=== PATIENT | female | born 1940 | race Caucasian/White ===

== ENCOUNTER 2017-10-31 21:33 | Emergency (ER) | payer MEDICARE ==
[~2017-10-31] VITALS: Ht 170.2 cm; Wt 57.0 kg
[~2017-10-31 21:33] MED LIST: AMLO5TAB4 PO; THY15T PO
[2017-10-31 23:07] VITALS: BP 182/80
[2017-10-31] MEDS ORDERED: hyDRALAzine 10mg tablet PO SCH (23:20)
== END 2017-10-31 23:31 | disposition home or self-care (01) ==
LOC: ER 21:34
DX: I10 Essential (primary) hypertension (principal); G89.29 Other chronic pain; F12.90 Cannabis use, unspecified, uncomplicated; Z98.890 Other specified postprocedural states; Z79.899 Other long term (current) drug therapy
CPT/HCPCS: 99282

== ENCOUNTER 2017-11-10 08:37 | Outpatient (CLI) | payer MEDICARE ==
[2017-11-10 09:56] LABS: CLARITY,URINE CLEAR (Clear); COLOR,URINE STRAW (Yellow); GLUCOSE, URINE NEGATIVE (Neg); KETONES,URINE NEGATIVE (Neg); LEUKOCYTE ESTERASE ,URINE NEGATIVE (Neg); NITRITES, URINE NEGATIVE (Neg); OCCULT BLOOD,URINE NEGATIVE (Neg); PH,URINE 5.5 (4.8-8.0); PROTEIN,URINE NEGATIVE (Neg); UROBILINOGEN,URINE 0.2 E.U/dL (0.2-1.0)
[2017-11-10 10:04] LABS: PROTHROMBIN TIME 9.9 SECONDS (9.0-12.0)
[2017-11-10 10:04] LABS: UA COLLECTION TYPE CLN CATCH MIDSTREAM
[2017-11-10 10:08] LABS: BASOPHILS # (AUTO) 0.1 X10'3 (0-0.2); BASOPHILS % (AUTO) 0.8 % (0-1); EOSINOPHILS # (AUTO) 1.1 X10'3 (0-0.9); EOSINOPHILS % (AUTO) 11.8 % (0-6); HEMATOCRIT 50.4 % (35.0-45.0); HEMOGLOBIN 16.5 g/dl (12.0-16.0); LYMPHOCYTES # (AUTO) 2.5 X10'3 (1.1-4.8); LYMPHOCYTES % (AUTO) 26.9 % (21-51); MEAN CORPUSCULAR HEMOGLOBIN 30.3 PG (27.0-31.0); MEAN CORPUSCULAR HGB CONC 32.8 % (33.0-36.5); MEAN CORPUSCULAR VOLUME 92.5 FL (78-98); MEAN PLATELET VOLUME 9.2 FL (7.4-10.4); MONOCYTES % (AUTO) 9.8 % (2-12); NEUTROPHILS # (AUTO) 4.5 X10'3 (1.8-7.7); NEUTROPHILS % (AUTO) 50.7 % (42-75); PLATELET COUNT 207 X10'3 (140-440); RED BLOOD COUNT 5.44 X10'6 (4.20-5.60); RED CELL DISTRIBUTION WIDTH 13.9 % (11.5-14.5); WHITE BLOOD COUNT 9.1 X10'3 (4.5-11.0)
[2017-11-10 10:09] LABS: MONOCYTES # (AUTO) 0.9 X10'3 (0-0.9)
[2017-11-10 10:21] LABS: ALANINE AMINOTRANSFERASE 25 U/L (12-78); ALBUMIN 4.2 G/DL (3.4-5.0); ALKALINE PHOSPHATASE 60 IU/L (46-116); ANION GAP 10 (8-16); ASPARTATE AMINO TRANSFERASE 28 U/L (10-37); BILIRUBIN,TOTAL 1.3 MG/DL (0.1-1.0); BLOOD UREA NITROGEN 10 MG/DL (7-18); BUN/CREATININE RATIO 12.8 (6.6-38.0); CALCIUM 10.5 MG/DL (8.5-10.1); CHLORIDE 100 MMOL/L (99-107); CREATININE 0.78 MG/DL (0.40-0.90); GLUCOSE 85 MG/DL (70-104); POTASSIUM 4.1 MMOL/L (3.5-5.1); SODIUM 137 MMOL/L (135-145); TOTAL CARBON DIOXIDE 26.6 MMOL/L (24-32); TOTAL PROTEIN 8.3 G/DL (6.4-8.2); eGFR 71 ML/MIN
== END 2017-11-10 23:59 | disposition home or self-care (01) ==
LOC: LAB 08:37
PROVIDERS: ATTEND Specialist
DX: Z01.818 Encounter for other preprocedural examination (principal); Z51.81 Encounter for therapeutic drug level monitoring; N39.0 Urinary tract infection, site not specified; E03.9 Hypothyroidism, unspecified; I10 Essential (primary) hypertension; J44.9 Chronic obstructive pulmonary disease, unspecified; Z87.891 Personal history of nicotine dependence
CPT/HCPCS: 36415; 80053; 81003; 84443; 85025; 85610; 87070

== ENCOUNTER 2017-11-10 08:50 | Outpatient (CLI) | payer MEDICARE ==
[2017-11-10 10:14] LABS: CHOL/HDL RATIO 2.8 (0.00-4.99); CHOLESTEROL 300 MG/DL (0-200); HDL CHOLESTEROL 109 MG/DL (35-60); LDL CHOLESTEROL 183 MG/DL (50-100); TRIGLYCERIDES 103 MG/DL (20-135)
== END 2017-11-10 23:59 | disposition home or self-care (01) ==
LOC: LAB 08:50
PROVIDERS: ATTEND Family Medicine
DX: Z13.220 Encounter for screening for lipoid disorders (principal); I10 Essential (primary) hypertension; J44.9 Chronic obstructive pulmonary disease, unspecified; Z87.891 Personal history of nicotine dependence
CPT/HCPCS: 36415; 80061

== ENCOUNTER 2017-11-24 05:42 | Inpatient (IN) | payer MEDICARE ==
[2017-11-24] VITALS (20 sets, daily range): BP systolic 86–143; BP diastolic 44–80
[~2017-11-24] VITALS: Ht 165.1 cm; Wt 57.4 kg
[~2017-11-24 05:42] MED LIST changes: -AMLO5TAB4 PO; +ASCO500T20 PO; +BLAC540C4 PO; +CHOL200026 PO; +CLON-529 PO; +LEVO75TA PO; +LIDOcaine 1% (10mg/ml) 2ml vial ONE; +LOSA50TA21 PO; +LUTE1CAP6 PO; +MAGN400C PO; +MELA5TAB14 PO; +MULT-1096 PO; +OMEG-86 PO; -THY15T PO; +VANCOMYCIN INJ 1000 MG in NORMAL SALINE 250ml IV.SOLN IV ONE; +[UNRECOGNIZED DRUG - OTHER] PO; +acetaminophen 325mg tablet PO ONE; +albuterol 2.5 MG/3 ML nebule NEB ONE; +cefazolin/dext.iso 2gm/100 ML IV ONE; +famotidine 20mg tablet PO ONE; +gabapentin 300mg capsule PO ONE; +ringers solution, lacted 1,000 ML IV SCH; +tranexamic acid inj. 1,500 MG in normal saline 100ml IV soln 85 ML IV ONE
[2017-11-24] MEDS ORDERED: ROPIVAcaine 0.5% (5mg/ml) 30ml vial ONE ×2 (06:44→08:07)
[2017-11-24] MEDS ORDERED: bacitracin inj 150,000 UNIT in sodium chloride irrig. sol 3,000 ML IR ONE (07:00)
[2017-11-24] MEDS ORDERED: tetracaine 1% (10mg/ml) pres. free inj. ONE (07:15)
[2017-11-24] MEDS ORDERED: ePHEDrine 50MG/ML INJ. ONE (07:16)
[2017-11-24] MEDS ORDERED: morphine /PF 1mg/ml 10ml inj. ONE (07:16)
[2017-11-24] MEDS ORDERED: MIDAZolam 5mg/5ml vial ONE (07:17)
[2017-11-24] MEDS ORDERED: fentaNYL/PF 50MCG/1 ML 2ML syringe ONE ×2 (07:17→08:54)
[2017-11-24] MEDS ORDERED: LIDOcaine 2% (20mg/ml) 5ml vial ONE (07:39)
[2017-11-24] MEDS ORDERED: propofol inj 20 ML IV ONE (07:40)
[2017-11-24] MEDS ORDERED: diphenhydrAMINE 50 mg/ml inj ONE (07:52)
[2017-11-24] MEDS ORDERED: cloNIDine hcl/PF 100mcg/ml inj ONE (08:06)
[2017-11-24] MEDS ORDERED: dexamethasone sod phosphate 4mg/ml inj. ONE (08:07)
[2017-11-24] MEDS ORDERED: ringers solution, lacted 1,000 ML IV SCH (08:27)
[2017-11-24] MEDS ORDERED: naloxone 2mg/2ml inj 1.2 MG in normal saline 500ml IV soln 500 ML IV PRN (08:27)
[2017-11-24] MEDS ORDERED: HYDROmorphone inj. 0.5 MG/0.5 ML DISP.SYRIN IV PRN (08:30)
[2017-11-24] MEDS ORDERED: morphine 4 MG/ML inj SYRINge IV PRN (08:30)
[2017-11-24] MEDS ORDERED: ondansetron/PF 4mg/2ml inj IV PRN ×3 (08:30→09:55)
[2017-11-24] MEDS ORDERED: diphenhydrAMINE 50 mg/ml inj IV PRN (08:30)
[2017-11-24] MEDS ORDERED: ceFAZolin 1000mg inj ONE (08:40)
[2017-11-24] MEDS ORDERED: diphenhydrAMINE 25mg capsule PO PRN ×2 (09:55)
[2017-11-24] MEDS ORDERED: HYDROmorphone 1 mg/ml syringe IV PRN (09:55)
[2017-11-24] MEDS ORDERED: bisacodyl 10mg suppository rectal RC PRN (09:55)
[2017-11-24] MEDS ORDERED: acetaminophen 325mg tablet PO PRN (09:55)
[2017-11-24] MEDS ORDERED: magnesium hydroxide 30ml (MOM) UD suspension PO PRN (09:55)
[2017-11-24] MEDS: gabapentin 300mg capsule PO SCH ×2 (13:09→20:45)
[2017-11-24] MEDS: oxyCODONE/APAP 5-325mg tablet PO PRN ×2 (13:11→17:18)
[2017-11-24] MEDS: potassium cl 20mEq in 1/2 NS 1,000 ML IV SCH ×2 (13:13→20:46)
[2017-11-24] MEDS: ceFAZolin 1GM/D5W- ADD-VANTAGE 50 ML IV SCH ×2 (15:57→23:50)
[2017-11-24] MEDS ORDERED: vancomycin/NS 1 GM ADD-VANTAGE 250 ML IV SCH (20:00)
[2017-11-24] MEDS: ascorbic acid 500mg tablet PO SCH (20:45)
[2017-11-24] MEDS: sennosides 8.6mg tablet PO SCH (20:45)
[2017-11-25] MEDS: potassium cl 20mEq in 1/2 NS 1,000 ML IV SCH ×3 (01:53→15:03)
[2017-11-25 02:00] VITALS: BP 121/67
[2017-11-25] MEDS: oxyCODONE/APAP 5-325mg tablet PO PRN ×4 (05:19→20:25)
[2017-11-25 05:47] LABS: BASOPHILS % (AUTO) 0.2 % (0-1); EOSINOPHILS % (AUTO) 0.4 % (0-6); HEMATOCRIT 34.9 % (35.0-45.0); HEMOGLOBIN 12.1 g/dl (12.0-16.0); LYMPHOCYTES # (AUTO) 1.1 X10'3 (1.1-4.8); LYMPHOCYTES % (AUTO) 10.1 % (21-51); MEAN CORPUSCULAR HEMOGLOBIN 31.7 PG (27.0-31.0); MEAN CORPUSCULAR HGB CONC 34.8 % (33.0-36.5); MEAN CORPUSCULAR VOLUME 91.3 FL (78-98); MEAN PLATELET VOLUME 9.4 FL (7.4-10.4); MONOCYTES # (AUTO) 0.7 X10'3 (0-0.9); MONOCYTES % (AUTO) 6.3 % (2-12); NEUTROPHILS # (AUTO) 9.2 X10'3 (1.8-7.7); PLATELET COUNT 188 X10'3 (140-440); RED BLOOD COUNT 3.82 X10'6 (4.20-5.60); RED CELL DISTRIBUTION WIDTH 13.9 % (11.5-14.5)
[2017-11-25 05:50] LABS: INR 1.3 INR; PROTHROMBIN TIME 13.3 SECONDS (9.0-12.0)
[2017-11-25 06:00] VITALS: BP 112/61
[2017-11-25 06:15] LABS: ANION GAP 8 (8-16); CHLORIDE 107 MMOL/L (99-107); POTASSIUM 4.6 MMOL/L (3.5-5.1); SODIUM 140 MMOL/L (135-145); TOTAL CARBON DIOXIDE 24.7 MMOL/L (24-32)
[2017-11-25] MEDS: ascorbic acid 500mg tablet PO SCH ×2 (08:16→20:24)
[2017-11-25] MEDS: levoTHYROXINE 75mcg tablet PO SCH (08:16)
[2017-11-25] MEDS: multivitamins, therapeutics tablet PO SCH (08:17)
[2017-11-25] MEDS: gabapentin 300mg capsule PO SCH ×3 (08:17→20:24)
[2017-11-25] MEDS: losartan 50mg tablet PO SCH (08:18)
[2017-11-25] MEDS: cloNIDine 0.1 mg tablet PO SCH (08:18)
[2017-11-25 10:00] VITALS: BP 116/58
[2017-11-25] MEDS ORDERED: warfarin 5mg tablet PO ONE (10:00)
[2017-11-25 14:00] VITALS: BP 133/51
[2017-11-25 18:00] VITALS: BP 147/55
[2017-11-25] MEDS: sennosides 8.6mg tablet PO SCH (20:24)
[2017-11-25 22:00] VITALS: BP 141/49
[2017-11-26] MEDS: oxyCODONE/APAP 5-325mg tablet PO PRN ×5 (00:23→19:03)
[2017-11-26 05:45] LABS: BASOPHILS % (AUTO) 0.4 % (0-1); EOSINOPHILS # (AUTO) 0.4 X10'3 (0-0.9); EOSINOPHILS % (AUTO) 5.5 % (0-6); HEMATOCRIT 34.8 % (35.0-45.0); HEMOGLOBIN 12.3 g/dl (12.0-16.0); LYMPHOCYTES # (AUTO) 1.7 X10'3 (1.1-4.8); LYMPHOCYTES % (AUTO) 23.9 % (21-51); MEAN CORPUSCULAR HEMOGLOBIN 32.2 PG (27.0-31.0); MEAN CORPUSCULAR HGB CONC 35.3 % (33.0-36.5); MEAN CORPUSCULAR VOLUME 91.1 FL (78-98); MEAN PLATELET VOLUME 9.7 FL (7.4-10.4); MONOCYTES # (AUTO) 0.9 X10'3 (0-0.9); MONOCYTES % (AUTO) 12.9 % (2-12); NEUTROPHILS # (AUTO) 4.3 X10'3 (1.8-7.7); NEUTROPHILS % (AUTO) 57.3 % (42-75); PLATELET COUNT 185 X10'3 (140-440); RED BLOOD COUNT 3.82 X10'6 (4.20-5.60); RED CELL DISTRIBUTION WIDTH 13.8 % (11.5-14.5); WHITE BLOOD COUNT 7.3 X10'3 (4.5-11.0)
[2017-11-26 06:00] VITALS: BP 163/75
[2017-11-26 06:01] LABS: INR 1.3 INR; PROTHROMBIN TIME 13.4 SECONDS (9.0-12.0)
[2017-11-26] MEDS: levoTHYROXINE 75mcg tablet PO SCH (07:12)
[2017-11-26] MEDS: ascorbic acid 500mg tablet PO SCH ×2 (07:49→20:38)
[2017-11-26] MEDS: multivitamins, therapeutics tablet PO SCH (07:49)
[2017-11-26] MEDS: gabapentin 300mg capsule PO SCH ×3 (07:50→20:39)
[2017-11-26] MEDS: cloNIDine 0.1 mg tablet PO SCH (07:51)
[2017-11-26] MEDS: losartan 50mg tablet PO SCH (07:51)
[2017-11-26] MEDS ORDERED: acetaminophen 325mg tablet PO PRN (09:55)
[2017-11-26 10:00] VITALS: BP 157/76
[2017-11-26] MEDS ORDERED: warfarin 5mg tablet PO ONE (10:00)
[2017-11-26] MEDS ORDERED: mag hydrox/Alum hydrox/simeth 30ml oral suspension PO PRN (15:00)
[2017-11-26 18:00] VITALS: BP 150/66
[2017-11-26] MEDS: sennosides 8.6mg tablet PO SCH (20:39)
[2017-11-26 22:00] VITALS: BP 130/43
[2017-11-27] MEDS: oxyCODONE/APAP 5-325mg tablet PO PRN ×3 (02:23→12:19)
[2017-11-27 06:00] VITALS: BP 158/72
[2017-11-27 06:18] LABS: BASOPHILS % (AUTO) 0.5 % (0-1); EOSINOPHILS # (AUTO) 0.5 X10'3 (0-0.9); EOSINOPHILS % (AUTO) 5.9 % (0-6); HEMATOCRIT 33.1 % (35.0-45.0); HEMOGLOBIN 11.6 g/dl (12.0-16.0); LYMPHOCYTES # (AUTO) 1.3 X10'3 (1.1-4.8); LYMPHOCYTES % (AUTO) 15.9 % (21-51); MEAN CORPUSCULAR HEMOGLOBIN 31.6 PG (27.0-31.0); MEAN CORPUSCULAR VOLUME 90.4 FL (78-98); MEAN PLATELET VOLUME 9.3 FL (7.4-10.4); MONOCYTES # (AUTO) 0.9 X10'3 (0-0.9); MONOCYTES % (AUTO) 10.2 % (2-12); NEUTROPHILS # (AUTO) 5.7 X10'3 (1.8-7.7); NEUTROPHILS % (AUTO) 67.5 % (42-75); PLATELET COUNT 202 X10'3 (140-440); RED BLOOD COUNT 3.67 X10'6 (4.20-5.60); RED CELL DISTRIBUTION WIDTH 13.9 % (11.5-14.5); WHITE BLOOD COUNT 8.4 X10'3 (4.5-11.0)
[2017-11-27 06:27] LABS: INR 1.5 INR; PROTHROMBIN TIME 15.5 SECONDS (9.0-12.0)
[2017-11-27] MEDS: levoTHYROXINE 75mcg tablet PO SCH (06:56)
[2017-11-27] MEDS: cloNIDine 0.1 mg tablet PO SCH (07:29)
[2017-11-27] MEDS: multivitamins, therapeutics tablet PO SCH (07:30)
[2017-11-27] MEDS ORDERED: pantoprazole 40mg Tablet.DR PO SCH (07:30)
[2017-11-27] MEDS: losartan 50mg tablet PO SCH (07:30)
[2017-11-27] MEDS: ascorbic acid 500mg tablet PO SCH (07:30)
[2017-11-27] MEDS: gabapentin 300mg capsule PO SCH ×2 (07:30→13:07)
[2017-11-27 10:00] VITALS: BP 138/66
[2017-11-27] MEDS ORDERED: warfarin 5mg tablet PO ONE (10:00)
== END 2017-11-27 14:24 | DRG 470 ==
LOC: PAS IN 05:42 → EDSTATUS 07:30 → ORTHO 4S 11:21
PROVIDERS: ADMIT Specialist; ATTEND Specialist
PROC: 3E0T3BZ Introduction of Anesthetic Agent into Peripheral Nerves and Plexi, Percutaneous Approach (ICD-10-PCS; 2017-11-24)
PROC: 0SRD0J9 Replacement of Left Knee Joint with Synthetic Substitute, Cemented, Open Approach (ICD-10-PCS; principal; 2017-11-24 07:16)
DX: M17.12 Unilateral primary osteoarthritis, left knee (principal); D62 Acute posthemorrhagic anemia; I10 Essential (primary) hypertension; E03.9 Hypothyroidism, unspecified; J44.9 Chronic obstructive pulmonary disease, unspecified; M21.062 Valgus deformity, not elsewhere classified, left knee; Z79.899 Other long term (current) drug therapy; Z86.73 Personal history of transient ischemic attack (TIA), and cerebral infarction without residual deficits; Z87.891 Personal history of nicotine dependence
CPT/HCPCS: 36415; 73560; 80051; 84443; 85025; 85610; 97110; 97116; 97162; 97530; A6449; A6455; A7000; C1713; C1758; C1776; J0690; J0735; J1100; J1200; J2001; J2250; J2274; J2310; J2704; J2795; J3010; J3370; J3490; J7030; J7120

== ENCOUNTER 2018-10-01 08:43 | Outpatient (CLI) | payer MEDICARE ==
[~2018-10-01 08:43] MED LIST changes: -LIDOcaine 1% (10mg/ml) 2ml vial ONE; -LOSA50TA21 PO; +LOSA50TA64 PO; -VANCOMYCIN INJ 1000 MG in NORMAL SALINE 250ml IV.SOLN IV ONE; -acetaminophen 325mg tablet PO ONE; -albuterol 2.5 MG/3 ML nebule NEB ONE; -cefazolin/dext.iso 2gm/100 ML IV ONE; -famotidine 20mg tablet PO ONE; -gabapentin 300mg capsule PO ONE; -ringers solution, lacted 1,000 ML IV SCH; -tranexamic acid inj. 1,500 MG in normal saline 100ml IV soln 85 ML IV ONE
[2018-10-01 09:58] LABS: BASOPHILS # (AUTO) 0.1 X10'3 (0-0.2); BASOPHILS % (AUTO) 0.8 % (0-1); EOSINOPHILS # (AUTO) 0.6 X10'3 (0-0.9); EOSINOPHILS % (AUTO) 7.2 % (0-6); HEMATOCRIT 42.1 % (35.0-45.0); HEMOGLOBIN 14.2 g/dl (12.0-16.0); LYMPHOCYTES # (AUTO) 2.1 X10'3 (1.1-4.8); LYMPHOCYTES % (AUTO) 23.9 % (21-51); MEAN CORPUSCULAR HEMOGLOBIN 30.7 PG (27.0-31.0); MEAN CORPUSCULAR HGB CONC 33.7 g/dL (33.0-36.5); MEAN CORPUSCULAR VOLUME 91.2 FL (78-98); MEAN PLATELET VOLUME 8.5 FL (7.4-10.4); MONOCYTES # (AUTO) 0.9 X10'3 (0-0.9); MONOCYTES % (AUTO) 10.5 % (2-12); NEUTROPHILS # (AUTO) 4.9 X10'3 (1.8-7.7); NEUTROPHILS % (AUTO) 57.6 % (42-75); PLATELET COUNT 313 X10'3 (140-440); RED BLOOD COUNT 4.61 X10'6 (4.20-5.60); RED CELL DISTRIBUTION WIDTH 14.1 % (11.5-14.5); WHITE BLOOD COUNT 8.6 X10'3 (4.5-11.0)
[2018-10-01 09:59] LABS: ALANINE AMINOTRANSFERASE 25 U/L (12-78); ALBUMIN 3.9 G/DL (3.4-5.0); ALKALINE PHOSPHATASE 63 IU/L (46-116); ANION GAP 7 (8-16); ASPARTATE AMINO TRANSFERASE 27 U/L (10-37); BILIRUBIN,TOTAL 1.4 MG/DL (0.1-1.0); BLOOD UREA NITROGEN 9 MG/DL (7-18); BUN/CREATININE RATIO 12.5 (6.6-38.0); CALCIUM 9.3 MG/DL (8.5-10.1); CHLORIDE 99 MMOL/L (99-107); CREATININE 0.72 MG/DL (0.40-0.90); GLUCOSE 83 MG/DL (70-104); POTASSIUM 3.3 MMOL/L (3.5-5.1); SODIUM 134 MMOL/L (135-145); TOTAL PROTEIN 7.8 G/DL (6.4-8.2); eGFR 78 ML/MIN
[2018-10-01 10:02] LABS: PARTIAL THROMBOPLASTIN TIME 30 SECONDS (22-32)
== END 2018-10-01 23:59 | disposition home or self-care (01) ==
LOC: LAB 08:43
PROVIDERS: ATTEND Otolaryngology
DX: J44.9 Chronic obstructive pulmonary disease, unspecified (principal); R05 Cough; Z79.899 Other long term (current) drug therapy; Z87.891 Personal history of nicotine dependence; I10 Essential (primary) hypertension; Z86.2 Personal history of diseases of the blood and blood-forming organs and certain disorders involving the immune mechanism
CPT/HCPCS: 36415; 80053; 85025; 85576; 85610; 85730

== ENCOUNTER → 2020-09-06 | Outpatient (CLI) | payer MEDICARE ==
[~2020-09-06] VITALS: Ht 165.1 cm; Wt 56.7 kg
[~2020-09-06] MED LIST changes: +albuterol 2.5 MG/3 ML nebule NEB ONE
== END | disposition home or self-care (01) ==
LOC: RT 10:38
PROVIDERS: ATTEND Otolaryngology
DX: J32.0 Chronic maxillary sinusitis (principal); J45.909 Unspecified asthma, uncomplicated; R05 Cough
CPT/HCPCS: 94060; 94760

== ENCOUNTER 2021-07-08 15:11 | Emergency (ER) | payer MEDICARE ==
[~2021-07-08] VITALS: Ht 167.6 cm; Wt 56.8 kg
[~2021-07-08 15:11] MED LIST changes: -MULT-1096 PO; +MULT-1166 PO; -albuterol 2.5 MG/3 ML nebule NEB ONE
--- NOTE | 2021-07-08 15:47 | NUR ---
provider at bedside.
[2021-07-08 15:59] LABS: BASOPHILS # (AUTO) 0.1 X10'3 (0-0.2); BASOPHILS % (AUTO) 0.9 % (0-1); EOSINOPHILS # (AUTO) 0.2 X10'3 (0-0.9); EOSINOPHILS % (AUTO) 2.6 % (0-6); HEMATOCRIT 41.4 % (35.0-45.0); HEMOGLOBIN 13.9 g/dl (12.0-16.0); LYMPHOCYTES # (AUTO) 2.1 X10'3 (1.1-4.8); LYMPHOCYTES % (AUTO) 26.9 % (21-51); MEAN CORPUSCULAR HEMOGLOBIN 29.8 PG (27.0-31.0); MEAN CORPUSCULAR HGB CONC 33.6 g/dL (33.0-36.5); MEAN CORPUSCULAR VOLUME 88.6 FL (78-98); MEAN PLATELET VOLUME 7.8 FL (7.4-10.4); MONOCYTES # (AUTO) 0.9 X10'3 (0-0.9); MONOCYTES % (AUTO) 11.1 % (2-12); NEUTROPHILS # (AUTO) 4.7 X10'3 (1.8-7.7); NEUTROPHILS % (AUTO) 58.5 % (42-75); PLATELET COUNT 324 X10'3 (140-440); RED BLOOD COUNT 4.67 X10'6 (4.20-5.60); RED CELL DISTRIBUTION WIDTH 14.8 % (11.5-14.5); WHITE BLOOD COUNT 7.9 X10'3 (4.5-11.0)
[2021-07-08 16:05] LABS: ALANINE AMINOTRANSFERASE 27 U/L (12-78); ALBUMIN 3.8 G/DL (3.4-5.0); ALKALINE PHOSPHATASE 72 IU/L (46-116); ANION GAP 5 (8-16); ASPARTATE AMINO TRANSFERASE 23 U/L (10-37); BILIRUBIN,TOTAL 0.8 MG/DL (0.1-1.0); BLOOD UREA NITROGEN 16 MG/DL (7-18); BUN/CREATININE RATIO 15.5 (6.6-38.0); CALCIUM 9.5 MG/DL (8.5-10.1); CHLORIDE 96 MMOL/L (99-107); CREATININE 1.03 MG/DL (0.40-0.90); GLUCOSE 132 MG/DL (70-104); POTASSIUM 3.9 MMOL/L (3.5-5.1); SODIUM 132 MMOL/L (135-145); TOTAL CARBON DIOXIDE 30.6 MMOL/L (24-32); TOTAL PROTEIN 7.6 G/DL (6.4-8.2); eGFR 51 ML/MIN
[2021-07-08 16:39] LABS: D-DIMER 0.51 MG/L FEU (0-0.50)
[2021-07-08 17:30] VITALS: BP 132/88
== END 2021-07-08 17:45 | disposition home or self-care (01) ==
LOC: ER 15:11
DX: R07.89 Other chest pain (principal); R05.9 Cough, unspecified; R68.84 Jaw pain; I10 Essential (primary) hypertension; G89.29 Other chronic pain; F41.9 Anxiety disorder, unspecified; F32.A Depression, unspecified; F17.200 Nicotine dependence, unspecified, uncomplicated; F12.90 Cannabis use, unspecified, uncomplicated; Z98.890 Other specified postprocedural states; Z72.89 Other problems related to lifestyle; Z79.899 Other long term (current) drug therapy
CPT/HCPCS: 36415; 71045; 80053; 83880; 84484; 85025; 85379; 93005; 99285

== ENCOUNTER → 2022-03-15 | Emergency (ER) | payer MEDICARE ==
[~2022-03-15] VITALS: Ht 162.6 cm; Wt 61.4 kg
[~2022-03-15] MED LIST changes: +LIDOCAINE 2%/EPI 1:100,000 inj. Multi-dose 20 ML VIAL SQ ONE; +LIDOcaine 2% 10ml TOPICAL JELLY (Urojet) TP ONE; +morphine 4 MG/ML inj SYRINge IV ONE; +ondansetron/PF 4mg/2ml inj IV ONE; +oxyCODONE/APAP 5-325mg tablet PO ONE
[2022-03-15 12:44] LABS: BASOPHILS # (AUTO) 0.1 X10'3 (0-0.2); BASOPHILS % (AUTO) 0.6 % (0-1); EOSINOPHILS # (AUTO) 0.2 X10'3 (0-0.9); EOSINOPHILS % (AUTO) 1.5 % (0-6); HEMATOCRIT 39.9 % (35.0-45.0); LYMPHOCYTES # (AUTO) 1.2 X10'3 (1.1-4.8); LYMPHOCYTES % (AUTO) 9.1 % (21-51); MEAN CORPUSCULAR HEMOGLOBIN 29.9 PG (27.0-31.0); MEAN CORPUSCULAR HGB CONC 32.4 g/dL (33.0-36.5); MEAN CORPUSCULAR VOLUME 92.1 FL (78-98); MEAN PLATELET VOLUME 8.3 FL (7.4-10.4); MONOCYTES % (AUTO) 7.6 % (2-12); NEUTROPHILS # (AUTO) 10.5 X10'3 (1.8-7.7); NEUTROPHILS % (AUTO) 81.2 % (42-75); PLATELET COUNT 286 X10'3 (140-440); RED BLOOD COUNT 4.34 X10'6 (4.20-5.60); RED CELL DISTRIBUTION WIDTH 14.6 % (11.5-14.5)
[2022-03-15 12:56] LABS: APTT 25 SECONDS (22-32)
[2022-03-15 13:02] LABS: ALANINE AMINOTRANSFERASE 27 U/L (12-78); ALBUMIN 3.8 G/DL (3.4-5.0); ALBUMIN/GLOBULIN RATIO 1.1 (1.1-1.5); ALKALINE PHOSPHATASE 60 IU/L (46-116); ANION GAP 8 (8-16); ASPARTATE AMINO TRANSFERASE 33 U/L (10-37); BLOOD UREA NITROGEN 13 MG/DL (7-18); CHLORIDE 101 MMOL/L (99-107); CREATININE 0.93 MG/DL (0.40-0.90); GLUCOSE 145 MG/DL (70-104); POTASSIUM 3.9 MMOL/L (3.5-5.1); SODIUM 138 MMOL/L (135-145); TOTAL CARBON DIOXIDE 29.2 MMOL/L (24-32); TOTAL PROTEIN 7.3 G/DL (6.4-8.2); eGFR 58 ML/MIN
[2022-03-15] MEDS: morphine 4 MG/ML inj SYRINge IV PRN ×2 (14:49→18:52)
--- NOTE | 2022-03-15 15:40 | NUR ---
REPORT CALLED TO ZEHRA MARTINEZ AT [facility] FOR PT TRANSFER
[2022-03-15 17:38] VITALS: BP 142/69
== END | disposition short-term general hospital (02) ==
LOC: ER 11:12
DX: S32.432A Displaced fracture of anterior column [iliopubic] of left acetabulum, initial encounter for closed fracture (principal); S32.502A Unspecified fracture of left pubis, initial encounter for closed fracture; S32.501A Unspecified fracture of right pubis, initial encounter for closed fracture; S32.392A Other fracture of left ilium, initial encounter for closed fracture; S52.591A Other fractures of lower end of right radius, initial encounter for closed fracture; I10 Essential (primary) hypertension; E03.9 Hypothyroidism, unspecified; R79.1 Abnormal coagulation profile; F12.90 Cannabis use, unspecified, uncomplicated; F41.9 Anxiety disorder, unspecified; F32.9 Major depressive disorder, single episode, unspecified; Z87.891 Personal history of nicotine dependence; Z98.890 Other specified postprocedural states; Z79.899 Other long term (current) drug therapy; W18.39XA Other fall on same level, initial encounter; Y93.89 Activity, other specified; Y92.89 Other specified places as the place of occurrence of the external cause; Y99.8 Other external cause status
CPT/HCPCS: 36415; 71045; 72170; 72192; 73100; 80053; 85025; 85610; 85730; 93005; 96374; 96375; 96376; 99285; J2270; J2405; L3908

== ENCOUNTER 2022-03-25 16:27 | Emergency (ER) | payer MEDICARE ==
[~2022-03-25] VITALS: Ht 162.6 cm; Wt 60.0 kg
[~2022-03-25 16:27] MED LIST changes: -LIDOCAINE 2%/EPI 1:100,000 inj. Multi-dose 20 ML VIAL SQ ONE; -LIDOcaine 2% 10ml TOPICAL JELLY (Urojet) TP ONE; -morphine 4 MG/ML inj SYRINge IV ONE; -ondansetron/PF 4mg/2ml inj IV ONE; -oxyCODONE/APAP 5-325mg tablet PO ONE
[2022-03-25 17:06] LABS: BASOPHILS # (AUTO) 0.1 X10'3 (0-0.2); BASOPHILS % (AUTO) 1.1 % (0-1); EOSINOPHILS # (AUTO) 0.5 X10'3 (0-0.9); HEMATOCRIT 24.2 % (35.0-45.0); HEMOGLOBIN 8.1 g/dl (12.0-16.0); LYMPHOCYTES # (AUTO) 1.8 X10'3 (1.1-4.8); MEAN CORPUSCULAR HEMOGLOBIN 31.1 PG (27.0-31.0); MEAN CORPUSCULAR HGB CONC 33.4 g/dL (33.0-36.5); MEAN CORPUSCULAR VOLUME 93.2 FL (78-98); MEAN PLATELET VOLUME 7.3 FL (7.4-10.4); MONOCYTES # (AUTO) 1.3 X10'3 (0-0.9); MONOCYTES % (AUTO) 13.4 % (2-12); NEUTROPHILS # (AUTO) 6.2 X10'3 (1.8-7.7); NEUTROPHILS % (AUTO) 62.5 % (42-75); PLATELET COUNT 541 X10'3 (140-440); RED BLOOD COUNT 2.59 X10'6 (4.20-5.60); RED CELL DISTRIBUTION WIDTH 14.9 % (11.5-14.5); WHITE BLOOD COUNT 9.9 X10'3 (4.5-11.0)
[2022-03-25 17:25] LABS: ALANINE AMINOTRANSFERASE 67 U/L (12-78); ALBUMIN 2.3 G/DL (3.4-5.0); ALBUMIN/GLOBULIN RATIO 0.7 (1.1-1.5); ALKALINE PHOSPHATASE 103 IU/L (46-116); ANION GAP 6 (8-16); ASPARTATE AMINO TRANSFERASE 58 U/L (10-37); BLOOD UREA NITROGEN 14 MG/DL (7-18); BUN/CREATININE RATIO 18.9 (6.6-38.0); CALCIUM 8.8 MG/DL (8.5-10.1); CHLORIDE 102 MMOL/L (99-107); CREATININE 0.74 MG/DL (0.40-0.90); GLUCOSE 100 MG/DL (70-104); POTASSIUM 3.9 MMOL/L (3.5-5.1); SODIUM 136 MMOL/L (135-145); TOTAL CARBON DIOXIDE 28.2 MMOL/L (24-32); TOTAL PROTEIN 5.6 G/DL (6.4-8.2); eGFR 75 ML/MIN
[2022-03-25 17:47] LABS: TOTAL CELLS COUNTED 100
[2022-03-25 17:48] LABS: PLATELET ESTIMATE INCREASED
--- NOTE | 2022-03-25 18:41 | NUR ---
Patient pending ride back to [facility] via litter transport, patient upated to this.
--- NOTE | 2022-03-25 18:50 | NUR ---
Report called to [facility] post acute who kindly accepts report at this time.
--- NOTE | 2022-03-25 19:34 | NUR ---
Per [facility] [place] no available rigs to transport patient back to [facility], pending rig availability.
[2022-03-25 21:24] VITALS: BP 116/71
== END 2022-03-25 21:26 ==
LOC: ER 16:28
DX: D64.9 Anemia, unspecified (principal); I10 Essential (primary) hypertension; E03.9 Hypothyroidism, unspecified; G89.29 Other chronic pain; Z87.81 Personal history of (healed) traumatic fracture; F31.9 Bipolar disorder, unspecified; F12.10 Cannabis abuse, uncomplicated; Z79.899 Other long term (current) drug therapy
CPT/HCPCS: 36415; 80053; 85007; 85025; 86885; 86900; 86901; 99284